=== PATIENT | female | born 1965 | race Caucasian/White ===

== ENCOUNTER → 2020-04-29 | Outpatient (CLI) | payer OTHER ==
--- NOTE | 2020-05-02 12:15 | MM ---
Reason for exam: screening (asymptomatic). History: Patient is postmenopausal. Physical Findings: A clinical breast exam by your physician is recommended on an annual basis and results should be correlated with mammographic findings. MG Screening Mammo w CAD Bilateral CC and MLO view(s) were taken. No prior studies available for comparison. There are scattered fibroglandular densities. There are benign appearing round calcifications bilaterally. There is no discrete abnormality. ASSESSMENT: Benign, BI-RAD 2 RECOMMENDATION: Routine screening mammogram of both breasts in 1 year.
== END | disposition home or self-care (01) ==
LOC: RADMAMWWP 16:45
PROVIDERS: ATTEND Internal Medicine
DX: Z12.31 Encounter for screening mammogram for malignant neoplasm of breast (principal)
CPT/HCPCS: 77067

== ENCOUNTER 2020-09-15 16:52 | Emergency (ER) | payer OTHER ==
[2020-09-15 17:05] VITALS: RESP 18; TEMP 98.6
--- NOTE | 2020-09-15 20:50 | XR ---
EXAMINATION TYPE: XR chest 1V DATE OF EXAM: 09/15/2020 COMPARISON: NONE HISTORY: Cough TECHNIQUE: Single frontal view of the chest is obtained. FINDINGS: There is mild bibasilar hazy opacities. No pleural effusion, or pneumothorax seen. The ca rdiac silhouette size is within normal limits. The osseous structures are intact. IMPRESSION: Mild bibasilar atelectasis versus infiltrates.
[2020-09-15] MEDS ORDERED: BAMLANIVIMAB 700 MG in SODIUM CHLORIDE 0.9% 50 ML IVPB ONE (21:00)
--- NOTE | 2020-09-15 21:37 | ED ---
Recheck HPI - General Chief Complaint: Recheck/Abnormal Lab/Rx Stated Complaint: COVID+ Time Seen by Provider: 09/15/20 20:04 Source: patient Mode of arrival: ambulatory Limitations: no limitations - History of Present Illness Initial Comments: 55-year-old female patient presents to the emergency department requesting infusion of bamlanivimab. Patient tested positive for COVID outpatient, she presents with an order written from her physician to have an infusion of bamlanivimab due to her having type II diabetes and morbid obesity. Patient states that she tested positive on Saturday. States that she started to have shortness of breath and cough on Saturday. States she generally has issues with allergies but her symptoms were different. She states she is coughing. Does feel short of breath especially with coughing episodes. Eyes any vomiting or diarrhea. Denies any rash. Patient denies any recent chest pain, abdominal pain, back pain, numbness, tingling, dizziness, weakness, hematuria, dysuria, urinary urgency, urinary frequency, headache, visual changes, or any other complaints. - Related Data Previous Rx's Medication Instructions Recorded Albuterol Sulfate [Proair Hfa] 1 - 2 puff INHALATION Q6HR PRN #1 09/15/20 inhaler guaiFENesin-DM 600/30MG [Mucinex 1 each PO Q12HR #10 tab.er.12h 09/15/20 Dm] Allergies Allergy/AdvReac Type Severity Reaction Status Date / Time No Known Allergies Allergy Verified 09/15/20 17:05 Review of Systems ROS Statement: Those systems with pertinent positive or pertinent negative responses have been documented in the HPI. ROS Other: All systems not noted in ROS Statement are negative. Past Medical History Past Medical History: Diabetes Mellitus, Hyperlipidemia, Hypertension History of Any Multi-Drug Resistant Organisms: None Reported Past Surgical History: Cholecystectomy, Hysterectomy, Orthopedic Surgery, Tonsillectomy Past Psychological History: No Psychological Hx Reported Smoking Status: Never smoker Past Alcohol Use History: None Reported Past Drug Use History: None Reported General Exam Limitations: no limitations General appearance: alert, in no apparent distress, other (This is a well- developed, well-nourished adult female patient in no acute distress. Vital signs upon presentation temperature 98.6F, pulse 102, respirations 18, blood pressure 136/78, pulse ox 96% on room air.) Eye exam: Present: normal appearance, PERRL, EOMI. Absent: scleral icterus, conjunctival injection, periorbital swelling ENT exam: Present: normal exam, normal oropharynx, mucous membranes moist Respiratory exam: Present: normal lung sounds bilaterally. Absent: respiratory distress, wheezes, rales, rhonchi, stridor Cardiovascular Exam: Present: regular rate, normal rhythm, normal heart sounds. Absent: systolic murmur, diastolic murmur, rubs, gallop, clicks GI/Abdominal exam: Present: soft, normal bowel sounds. Absent: distended, tenderness, guarding, rebound, rigid Neurological exam: Present: alert, oriented X3, CN II-XII intact Psychiatric exam: Present: normal affect, normal mood Skin exam: Present: warm, dry, intact, normal color. Absent: rash Course Vital Signs 09/15/20 17:01 Temperature 98.6 F Pulse Rate 102 H Respiratory 18 Rate Blood Pressure 136/78 O2 Sat by Pulse 96 Oximetry Medical Decision Making - Medical Decision Making 55 -year-old female patient with past medical history significant for type 2 diabetes and morbid obesity with a BMI of 43.3 presents to the emergency department today sent by her physician for possible infusion of bamlanivimab. Patient has been sick with increased shortness of breath and cough since Saturday. Tested positive for COVID-19 on Saturday. Patient does meet criteria we did talk about treatment with the confusion. We discussed risks versus benefits. She does agree to receive the medication. She'll be discharged to follow up with her primary care physician in one to 2 days. Return parameters were discussed in detail. She verbalizes understanding and agrees with this plan. Case discussed with my attending Dr. Vega. - Radiology Data Radiology results: report reviewed, image reviewed One view x-ray of the chest is obtained. Report was reviewed in its entirety. Impression by Dr. Kim shows mild bibasilar atelectasis versus infiltrates. Disposition Clinical Impression: COVID-19 Disposition: HOME SELF-CARE Condition: Good Instructions (If sedation given, give patient instructions): Coronavirus Disease 2019 (COVID-19) Additional Instructions: Increase fluids. Rest. Take medications as directed. Follow up to primary care physician for recheck in 1-2 days. Return to the emergency department for any new, worsening, or concerning symptoms. Prescriptions: guaiFENesin-DM 600/30MG [Mucinex Dm] 1 each PO Q12HR #10 tab.er.12h Albuterol Sulfate [Proair Hfa] 1 - 2 puff INHALATION Q6HR PRN #1 inhaler PRN Reason: Shortness Of Breath Is patient prescribed a controlled substance at d/c from ED?: No Referrals: Pauline Orta MD [Primary Care Provider] - 1-2 days
[2020-09-15 22:51] VITALS: BP 138/88; PULSE 92
== END 2020-09-15 23:17 | disposition home or self-care (01) ==
LOC: EC 16:52
DX: U07.1 COVID-19 (principal); E11.9 Type 2 diabetes mellitus without complications; E78.5 Hyperlipidemia, unspecified; I10 Essential (primary) hypertension; E66.01 Morbid (severe) obesity due to excess calories; Z68.41 Body mass index [BMI] 40.0-44.9, adult; Z79.84 Long term (current) use of oral hypoglycemic drugs
CPT/HCPCS: 71045; 99285; Q0239

== ENCOUNTER 2020-11-08 09:10 | Emergency (ER) | payer OTHER ==
[2020-11-08 09:14] VITALS: TEMP 97.9
[2020-11-08 10:17] LABS: Basophils # (A) 0.1 k/uL (0-0.2); Basophils % (A) 1 %; Eosinophils # (A) 0.1 k/uL (0-0.7); Eosinophils % (A) 2 %; HCT 43.5 % (34.0-46.0); HGB 14.5 gm/dL (11.4-16.0); Lymphocytes # (A) 1.4 k/uL (1.0-4.8); Lymphocytes % (A) 22 %; MCHC 33.2 g/dL (31.0-37.0); MCV 90.2 fL (80.0-100.0); Mean Platelet Volume 6.9; Monocytes # (A) 0.3 k/uL (0-1.0); Monocytes % (A) 5 %; Neutrophils # (A) 4.5 k/uL (1.3-7.7); Neutrophils % (A) 70 %; Platelet Count 221 k/uL (150-450); RBC 4.83 m/uL (3.80-5.40); WBC 6.5 k/uL (3.8-10.6)
[2020-11-08 10:30] VITALS: PULSE 81; RESP 16
[2020-11-08 10:36] LABS: ALT 21 U/L (4-34); AST 27 U/L (14-36); African American GFR (CKD) >90 (>60 ml/min/1.73 sqM); Albumin 4.2 g/dL (3.5-5.0); Alkaline Phosphatase 89 U/L (38-126); Anion Gap 8 mmol/L; Blood Urea Nitrogen 18 mg/dL (7-17); Calcium 9.6 mg/dL (8.4-10.2); Carbon Dioxide 25 mmol/L (22-30); Chloride 108 mmol/L (98-107); Glucose 175 mg/dL (74-99); Non-African American GFR(CKD) >90 (>60 ml/min/1.73 sqM); Potassium 4.2 mmol/L (3.5-5.1); Sodium 141 mmol/L (137-145); Total Bilirubin 0.9 mg/dL (0.2-1.3); Total Protein 7.7 g/dL (6.3-8.2)
--- NOTE | 2020-11-08 10:57 | XR ---
EXAMINATION TYPE: XR chest 2V DATE OF EXAM: 11/08/2020 COMPARISON: 09/15/2020 HISTORY: Swollen legs. TECHNIQUE: Frontal and lateral views of the chest are obtained. FINDINGS: Heart size is within normal limits. No focal consolidation, pneumothorax or pleural effusi on. No cephalization of vessels to suggest pulmonary edema. Mild degenerative changes of the thoracic spine. IMPRESSION: 1. No acute pulmonary disease.
--- NOTE | 2020-11-08 11:09 | ED ---
Extremity Problem HPI - General Chief complaint: Extremity Problem,Nontraumatic Stated complaint: feet & leg swelling/pain Time Seen by Provider: 11/08/20 09:18 Source: patient Mode of arrival: wheelchair Limitations: physical limitation - History of Present Illness Initial comments: 55-year-old female presenting to the ER today for chief complaint of leg swelling. pt states she chronic leg swelling that has been increased this week. states worse yesterday but better today with increasing lasix and leg elevation. Patient states that she has anthony hose that are too tight and thus wont wear them. States she has had chronic dyspnea since covid in September, denies chest pain. Patient states she has always slept with 2 pillows no new orthopnea. denies hx of DVT/PE or calf pain. Denies unilateral swelling. pt states the swelling makes skin tight and it hurts on feet. pt denies additional complaints. Upon arrival patient appears well nontoxic in no acute distress. - Related Data Home Medications Medication Instructions Recorded Confirmed Albuterol Sulfate [Proair Hfa] 1 - 2 puff INHALATION RT-Q6H PRN 11/08/20 Furosemide [Lasix] 40 mg PO DAILY 11/08/20 11/08/20 Gabapentin [Neurontin] 100 mg PO TID 11/08/20 11/08/20 Ibuprofen [Motrin] 800 mg PO AC-TID PRN 11/08/20 11/08/20 Loratadine 10 mg PO DAILY 11/08/20 11/08/20 Montelukast [Singulair] 10 mg PO DAILY 11/08/20 11/08/20 Pioglitazone [Actos] 45 mg PO DAILY 11/08/20 11/08/20 Potassium Chloride ER [K-Dur 10] 10 meq PO DAILY 11/08/20 11/08/20 glipiZIDE [Glucotrol] 5 mg PO AC-BID 11/08/20 11/08/20 lisinopriL [Zestril] 5 mg PO DAILY 11/08/20 11/08/20 Allergies Allergy/AdvReac Type Severity Reaction Status Date / Time No Known Allergies Allergy Verified 11/08/20 09:14 Review of Systems ROS Statement: Those systems with pertinent positive or pertinent negative responses have been documented in the HPI. ROS Other: All systems not noted in ROS Statement are negative. Past Medical History Past Medical History: Diabetes Mellitus, Hyperlipidemia, Hypertension History of Any Multi-Drug Resistant Organisms: None Reported Past Surgical History: Cholecystectomy, Hysterectomy, Orthopedic Surgery, Tonsillectomy Additional Past Surgical History / Comment(s): ganglion cyst Past Psychological History: No Psychological Hx Reported Smoking Status: Never smoker Past Alcohol Use History: None Reported Past Drug Use History: None Reported General Exam - General Exam Comments Initial Comments: General: The patient is awake and alert, in no distress Eye: +3 mm pupils are equal, round and reactive to light, extra-ocular movements are intact. No nystagmus. There is normal conjunctiva bilaterally. No signs of icterus. Ears, nose, mouth and throat: There are moist mucous membranes and no oral lesions. Neck: The neck is supple, there is no tenderness or JVD. Cardiovascular: There is a regular rate and rhythm. No murmur, rub or gallop is appreciated. Respiratory: Lungs are clear to auscultation, respirations are non-labored, breath sounds are equal. No wheezes, stridor, rales, or rhonchi. Gastrointestinal: Soft, non-distended, non-tender abdomen without masses or organomegaly noted. There is no rebound or guarding present. Musculoskeletal: Normal ROM, no tenderness. Strength 5/5. Sensation intact. Radial and DP pulses equal bilaterally 2+. Neurological: A&O x 3. CN II-XII intact grossly, There are no obvious motor or sensory deficits. Coordination appears grossly intact. Speech is normal. Skin: Skin is warm and dry and no rashes or lesions are noted. Psychiatric: Cooperative, appropriate mood & affect, normal judgment. Limitations: physical limitation Course Vital Signs 11/08/20 11/08/20 11/08/20 09:11 10:14 11:31 Temperature 97.9 F 97.9 F Pulse Rate 88 81 81 Respiratory 18 16 16 Rate Blood Pressure 152/77 155/82 153/85 O2 Sat by Pulse 98 98 98 Oximetry Medical Decision Making - Medical Decision Making Labs stable. No evidence of CHF on cxr. bnp wnl. pt swelling chronic. felt to be likely due to venous insufficiency. pt denies additional complaints. pt will be discharged with instruction to use her anthony hose and return for worsening swelling or new symptoms. - Lab Data Result diagrams: 11/08/20 09:47 11/08/20 09:47 Lab Results 11/08/20 11/08/20 11/08/20 Range/Units 09:47 09:47 09:47 WBC 6.5 (3.8-10.6) k/uL RBC 4.83 (3.80-5.40) m/uL Hgb 14.5 (11.4-16.0) gm/dL Hct 43.5 (34.0-46.0) % MCV 90.2 (80.0-100.0) fL MCH 30.0 (25.0-35.0) pg MCHC 33.2 (31.0-37.0) g/dL RDW 14.0 (11.5-15.5) % Plt Count 221 (150-450) k/uL MPV 6.9 Neutrophils % 70 % Lymphocytes % 22 % Monocytes % 5 % Eosinophils % 2 % Basophils % 1 % Neutrophils # 4.5 (1.3-7.7) k/uL Lymphocytes # 1.4 (1.0-4.8) k/uL Monocytes # 0.3 (0-1.0) k/uL Eosinophils # 0.1 (0-0.7) k/uL Basophils # 0.1 (0-0.2) k/uL Sodium 141 (137-145) mmol/L Potassium 4.2 (3.5-5.1) mmol/L Chloride 108 H (98-107) mmol/L Carbon Dioxide 25 (22-30) mmol/L Anion Gap 8 mmol/L BUN 18 H (7-17) mg/dL Creatinine 0.62 (0.52-1.04) mg/dL Est GFR (CKD-EPI)AfAm >90 (>60 ml/min/1.73 sqM) Est GFR (CKD-EPI)NonAf >90 (>60 ml/min/1.73 sqM) Glucose 175 H (74-99) mg/dL Calcium 9.6 (8.4-10.2) mg/dL Total Bilirubin 0.9 (0.2-1.3) mg/dL AST 27 (14-36) U/L ALT 21 (4-34) U/L Alkaline Phosphatase 89 (38-126) U/L Troponin I <0.012 (0.000-0.034) ng/mL NT-Pro-B Natriuret Pep pg/mL Total Protein 7.7 (6.3-8.2) g/dL Albumin 4.2 (3.5-5.0) g/dL 11/08/20 Range/Units 09:47 WBC (3.8-10.6) k/uL RBC (3.80-5.40) m/uL Hgb (11.4-16.0) gm/dL Hct (34.0-46.0) % MCV (80.0-100.0) fL MCH (25.0-35.0) pg MCHC (31.0-37.0) g/dL RDW (11.5-15.5) % Plt Count (150-450) k/uL MPV Neutrophils % % Lymphocytes % % Monocytes % % Eosinophils % % Basophils % % Neutrophils # (1.3-7.7) k/uL Lymphocytes # (1.0-4.8) k/uL Monocytes # (0-1.0) k/uL Eosinophils # (0-0.7) k/uL Basophils # (0-0.2) k/uL Sodium (137-145) mmol/L Potassium (3.5-5.1) mmol/L Chloride (98-107) mmol/L Carbon Dioxide (22-30) mmol/L Anion Gap mmol/L BUN (7-17) mg/dL Creatinine (0.52-1.04) mg/dL Est GFR (CKD-EPI)AfAm (>60 ml/min/1.73 sqM) Est GFR (CKD-EPI)NonAf (>60 ml/min/1.73 sqM) Glucose (74-99) mg/dL Calcium (8.4-10.2) mg/dL Total Bilirubin (0.2-1.3) mg/dL AST (14-36) U/L ALT (4-34) U/L Alkaline Phosphatase (38-126) U/L Troponin I (0.000-0.034) ng/mL NT-Pro-B Natriuret Pep 187 pg/mL Total Protein (6.3-8.2) g/dL Albumin (3.5-5.0) g/dL Disposition Clinical Impression: Bilateral lower extremity edema Disposition: HOME SELF-CARE Condition: Good Instructions (If sedation given, give patient instructions): Leg Edema (ED) Additional Instructions: Please use medication as discussed. Please follow-up with family doctor in the next 2 days. Please return to emergency room if the symptoms increase or worsen or for any other concerns. Is patient prescribed a controlled substance at d/c from ED?: No Referrals: Pauline Orta MD [Primary Care Provider] - 1-2 days Time of Disposition: 11:09
[2020-11-08 11:32] VITALS: BP 153/85
== END 2020-11-08 11:36 | disposition home or self-care (01) ==
LOC: EC 09:10
DX: R60.0 Localized edema (principal); E11.9 Type 2 diabetes mellitus without complications; E78.5 Hyperlipidemia, unspecified; I10 Essential (primary) hypertension; Z90.49 Acquired absence of other specified parts of digestive tract; Z90.710 Acquired absence of both cervix and uterus; Z90.09 Acquired absence of other part of head and neck; Z79.84 Long term (current) use of oral hypoglycemic drugs
CPT/HCPCS: 36415; 71046; 80053; 83880; 84484; 85025; 99285

== ENCOUNTER → 2020-11-15 | Outpatient (CLI) | payer OTHER ==
--- NOTE | 2020-11-15 16:51 | US ---
EXAMINATION TYPE: US pelvis complete transvag DATE OF EXAM: 11/15/2020 COMPARISON: NONE CLINICAL HISTORY: R10.2 pelvic pain. TECHNIQUE: Transvaginal (TV) and Transabdominal (TA) . Transabdominal sonographic images of the pel vis were acquired. Transvaginal sonographic images were medically necessary to better assess the fol lowing anatomy: ovaries Date of LMP: Hysterectomy EXAM MEASUREMENTS: Uterus: Surgically absent Endometrial Stripe: Surgically absent Right Ovary: not visualized Left Ovary: not visualized 1. Uterus: Surgically absent 2. Endometrium: Surgically absent 3. Right Ovary: obscured by overlying bowel/obesity 4. Left Ovary: obscured by overlying bowel/obesity 5. Bilateral Adnexa: wnl 6. Posterior cul-de-sac: wnl Morbidly obese patient. Technically difficult study. IMPRESSION: 1. Status post hysterectomy. The patient is morbidly obese causing limited evaluation. The ovaries ca nnot be visualized either due to surgical removal or patient's large body habitus obscuring visualiza tion.
== END | disposition home or self-care (01) ==
LOC: RADUSWWP 15:48
PROVIDERS: ATTEND Internal Medicine
DX: R10.2 Pelvic and perineal pain (principal); Z90.710 Acquired absence of both cervix and uterus
CPT/HCPCS: 76830; 76856

== ENCOUNTER → 2020-11-18 | Outpatient (CLI) | payer OTHER ==
--- NOTE | 2020-11-19 15:57 | ECHOF ---
Referral Reason:SOB R06.02, Leg Swelling R22.40 MEASUREMENTS -------- HEIGHT: 170.2 cm WEIGHT: 133.4 kg BP: IVSd: 1.3 cm (0.6 - 1.1) LVIDd: 4.0 cm (3.9 - 5.3) LVPWd: 1.5 cm (0.6 - 1.1) EDV(Teich): 69 ml IVSs: 2.0 cm LVIDs: 2.2 cm LVPWs: 2.1 cm %IVS Thck: 52 % ESV(Teich): 16 ml EF(Teich): 76 % %FS: 45 % SV(Teich): 53 ml RVIDd: 2.2 cm (< 3.3) Ao Diam: 2.6 cm (2.0 - 3.7) LA Diam: 3.2 cm (2.7 - 3.8) AV Cusp: 1.4 cm (1.5 - 2.6) EPSS: 0.7 cm MV E Presley: 0.89 m/s MV DecT: 158 ms MV Dec [place]: 5.6 m/s MV A Presley: 0.87 m/s MV E/A Ratio: 1.02 MV PHT: 46 ms MR Vmax: 1.53 m/s MR maxP.31 mmHg AV Vmax: 1.34 m/s AV maxP.14 mmHg TR Vmax: 1.28 m/s TR maxP.59 mmHg RAP: 5.00 mmHg RVSP: 11.59 mmHg MV EF SLOPE: 61.30 mm/s (70 - 150) MV EXCURSION: 14.23 mm (> 18.000) FINDINGS -------- This was a technically difficult study with suboptimal views. The left ventricular size is normal. There is moderate concentric left ventricular hypertrophy. O verall left ventricular systolic function is normal with, an EF between 55 - 60 %. The right ventricle is normal in size. The left atrial size is normal. The right atrial size is normal. Lumason used The aortic valve was not well visualized. The mitral valve is normal. There is trace mitral regurgitation. The tricuspid valve appears structurally normal. Trace tricuspid regurgitation present. Right molly tricular systolic pressure is normal at < 35 mmHg. There is no pulmonic regurgitation present. The aortic root size is normal. IVC Not well visulized. There is no pericardial effusion. CONCLUSIONS -------- 1. The left ventricular size is normal. 2. There is moderate concentric left ventricular hypertrophy. 3. Overall left ventricular systolic function is normal with, an EF between 55 - 60 %. 4. There is trace mitral regurgitation. 5. Trace tricuspid regurgitation present. 6. There is no pericardial effusion. PNP: Marni Latif RDCS
== END | disposition home or self-care (01) ==
LOC: RADECHMAIN 14:53
PROVIDERS: ATTEND Internal Medicine
DX: I08.1 Rheumatic disorders of both mitral and tricuspid valves (principal)
CPT/HCPCS: 93306

== ENCOUNTER → 2021-03-06 | Outpatient (CLI) | payer OTHER | END | disposition home or self-care (01) | LOC: RADMRIMAIN 08:10 | PROVIDERS: ATTEND Internal Medicine | DX: Z53.9 Procedure and treatment not carried out, unspecified reason (principal) ==

== ENCOUNTER → 2021-07-18 | Outpatient (CLI) | payer OTHER ==
--- NOTE | 2021-07-18 17:58 | BD ---
EXAMINATION TYPE: Axial Bone Density DATE OF EXAM: 07/18/2021 COMPARISON: NONE CLINICAL HISTORY: Postmenopausal screening Height: 65 IN Weight: 302 LBS FRAX RISK QUESTIONS: Secondary Osteoporosis: 3. Menopause before 45: PARTIAL HYST AGE 40 RISK FACTORS HISTORY OF: Active: LIMITED Diet low in dairy products/other sources of calcium: YES Postmenopausal woman: PARTIAL HYST AGE 40 MEDICATIONS: Additional Medications: GABAPENTIN, FUROSEMIDE, GLIPIZIDE, LISINOPRIL, ACTOS, KLOR-CON, MONTELUKAST, ROSUVASTATIN, CLARITIN EXAM MEASUREMENTS: Bone mineral densitometry was performed using the Haloband System. Bone mineral density as measured about the Lumbar spine is: ----- L1-L4(G/cm2): 1.284 T Score Values are as follows: ----- L2: 1.6 ----- L3: 0.3 ----- L4: 0.6 ----- L1-L4: 0.9 Bone mineral density BASELINE Bone mineral density about the R hip (g/cm2): 1.037 Bone mineral density about the L hip (g/cm2): 1.030 T Score values are as follows: -----R Neck: 0.0 -----L Neck: -0.1 -----R Total: 1.9 -----L Total: 1.9 Bone mineral density BASELINE IMPRESSION: Normal (Values between +1 and -1 indicate normal bone mass). Consider repeating this study in 5 year s or sooner if there is some new clinical indication. NOTE: T-SCORE=SD OF THE YOUNG ADULT MEAN.
--- NOTE | 2021-07-19 14:06 | MM ---
Reason for exam: screening (asymptomatic). Last mammogram was performed 1 year and 3 months ago. History: Patient is postmenopausal. Family history of breast cancer in maternal aunt. Physical Findings: A clinical breast exam by your physician is recommended on an annual basis and results should be correlated with mammographic findings. MG Screening Mammo w CAD Bilateral CC and MLO view(s) were taken. Prior study comparison: April 29, 2020, bilateral MG screening mammo w CAD. There are scattered fibroglandular densities. There is no discrete abnormality. ASSESSMENT: Negative, BI-RAD 1 RECOMMENDATION: Routine screening mammogram of both breasts in 1 year.
== END | disposition home or self-care (01) ==
LOC: RADMAMWWP 13:06
PROVIDERS: ATTEND Internal Medicine
DX: Z12.31 Encounter for screening mammogram for malignant neoplasm of breast (principal); Z78.0 Asymptomatic menopausal state; Z80.3 Family history of malignant neoplasm of breast
CPT/HCPCS: 77067; 77080

== ENCOUNTER 2021-07-29 01:06 | Emergency (ER) | payer OTHER ==
[2021-07-29 01:15] VITALS: BP 150/84; PULSE 87; RESP 18; TEMP 97.9
--- NOTE | 2021-07-29 02:04 | XR ---
EXAMINATION TYPE: XR ankle complete RT DATE OF EXAM: 07/29/2021 COMPARISON: NONE HISTORY: Fall. Pain TECHNIQUE: 3 views FINDINGS: There is plantar and Achilles calcaneal spurring. There is mild soft tissue swelling around the ankle. I see no fracture nor dislocation. IMPRESSION: Soft tissue swelling. No fracture seen.
--- NOTE | 2021-07-29 03:05 | ED ---
Fall HPI - General Chief Complaint: Fall Stated Complaint: Fall, RT ankle injury Time Seen by Provider: 07/29/21 01:30 Source: patient Mode of arrival: wheelchair - History of Present Illness Complaint: fall -: hour(s) Fall From: standing When Fall Occurred: 1-[address] Fall Occurred: street Loss of Consciousness: none Prolonged Down Time?: no Symptoms Prior to Fall: none Location - Extremities: Right: Ankle Severity: moderate Context: tripped/slipped - Related Data Home Medications Medication Instructions Recorded Confirmed Albuterol Sulfate [Proair Hfa] 1 - 2 puff INHALATION RT-Q6H PRN 11/08/20 11/08/20 Furosemide [Lasix] 40 mg PO DAILY 11/08/20 11/08/20 Gabapentin [Neurontin] 100 mg PO TID 11/08/20 11/08/20 Ibuprofen [Motrin] 800 mg PO AC-TID PRN 11/08/20 11/08/20 Loratadine 10 mg PO DAILY 11/08/20 11/08/20 Montelukast [Singulair] 10 mg PO DAILY 11/08/20 11/08/20 Pioglitazone [Actos] 45 mg PO DAILY 11/08/20 11/08/20 Potassium Chloride ER [K-Dur 10] 10 meq PO DAILY 11/08/20 11/08/20 glipiZIDE [Glucotrol] 5 mg PO AC-BID 11/08/20 11/08/20 lisinopriL [Zestril] 5 mg PO DAILY 11/08/20 11/08/20 Previous Rx's Medication Instructions Recorded Ibuprofen 800 mg PO TID #20 tablet 07/29/21 Allergies Allergy/AdvReac Type Severity Reaction Status Date / Time No Known Allergies Allergy Verified 07/29/21 01:15 Review of Systems ROS Statement: Those systems with pertinent positive or pertinent negative responses have been documented in the HPI. ROS Other: All systems not noted in ROS Statement are negative. Constitutional: Denies: fever Respiratory: Denies: cough, dyspnea Cardiovascular: Denies: chest pain Gastrointestinal: Denies: abdominal pain, vomiting Musculoskeletal: Reports: joint swelling, arthralgia. Denies: back pain Skin: Denies: rash Neurological: Denies: headache, weakness Past Medical History Past Medical History: Diabetes Mellitus, Hyperlipidemia, Hypertension History of Any Multi-Drug Resistant Organisms: None Reported Past Surgical History: Cholecystectomy, Hysterectomy, Orthopedic Surgery, Tonsillectomy Additional Past Surgical History / Comment(s): ganglion cyst Past Psychological History: No Psychological Hx Reported Smoking Status: Never smoker Past Alcohol Use History: None Reported Past Drug Use History: None Reported General Exam General appearance: alert, in no apparent distress Head exam: Present: atraumatic, normocephalic Respiratory exam: Present: normal lung sounds bilaterally. Absent: respiratory distress, wheezes, rales, rhonchi, stridor Cardiovascular Exam: Present: regular rate, normal rhythm, normal heart sounds. Absent: systolic murmur, diastolic murmur, rubs, gallop GI/Abdominal exam: Present: soft. Absent: distended, tenderness, guarding, rebound, rigid Extremities exam: Present: full ROM, tenderness, normal capillary refill, joint swelling. Absent: normal inspection, pedal edema, calf tenderness Right Knee exam: Present: normal inspection, full ROM. Absent: tenderness, swelling Lower Leg exam: Present: normal inspection, full ROM. Absent: tenderness, swelling Ankle exam: Present: full ROM, tenderness, swelling. Absent: normal inspection, abrasion, laceration, ecchymosis, deformity, crepitus, dislocation Foot/Toe exam: Present: normal inspection, full ROM. Absent: tenderness, swelling, ecchymosis, deformity, calcaneal tenderness, tenderness at base of 5th metatarsal Neurovascular tendon exam: Present: no vascular compromise. Absent: pulse deficit, abnormal cap refill, motor deficit, sensory deficit, tendon deficit, abnormal 2-point discrimination Neurological exam: Present: alert. Absent: motor sensory deficit Skin exam: Present: warm, dry, intact, normal color. Absent: rash Course Vital Signs 07/29/21 01:10 Temperature 97.9 F Pulse Rate 87 Respiratory 18 Rate Blood Pressure 150/84 O2 Sat by Pulse 98 Oximetry Disposition Clinical Impression: Fall, Ankle sprain Disposition: HOME SELF-CARE Condition: Good Instructions (If sedation given, give patient instructions): Ankle Sprain (ED) Prescriptions: Ibuprofen 800 mg PO TID #20 tablet Is patient prescribed a controlled substance at d/c from ED?: No Referrals: Pauline Orta MD [Primary Care Provider] - 1-2 days
== END 2021-07-29 03:31 | disposition home or self-care (01) ==
LOC: EC 01:06
DX: S93.401A Sprain of unspecified ligament of right ankle, initial encounter (principal); E11.9 Type 2 diabetes mellitus without complications; I10 Essential (primary) hypertension; E78.5 Hyperlipidemia, unspecified; Z79.84 Long term (current) use of oral hypoglycemic drugs; Z79.899 Other long term (current) drug therapy; W01.0XXA Fall on same level from slipping, tripping and stumbling without subsequent striking against object, initial encounter; Y92.410 Unspecified street and highway as the place of occurrence of the external cause
CPT/HCPCS: 99284

== ENCOUNTER 2021-09-05 14:36 | Emergency (ER) | payer OTHER ==
[2021-09-05 17:40] VITALS: RESP 18
--- NOTE | 2021-09-05 18:20 | ED ---
General Adult HPI - General Chief complaint: Upper Respiratory Infection Stated complaint: SOB & congestion Time Seen by Provider: 09/05/21 18:00 Source: patient, RN notes reviewed, old records reviewed Mode of arrival: ambulatory Limitations: no limitations - History of Present Illness Initial comments: This a 56-year-old female presents emergency Department complaining of a weeklong history of cough. Patient states she does have a little bit of sputum production. Patient denies any shortness of breath but she complains of rib pain because of her coughing. Patient also states she has frontal sinus tenderness and a frontal headache. Patient states she did get the COVID vaccine but did not get the booster. Patient denies any abdominal pain. Patient denies any back pain patient denies any nausea vomiting diarrhea. Patient denies any numbness or weakness. - Related Data Home Medications Medication Instructions Recorded Confirmed Albuterol Sulfate [Proair Hfa] 1 - 2 puff INHALATION RT-Q6H PRN 11/08/20 11/08/20 Furosemide [Lasix] 40 mg PO DAILY 11/08/20 11/08/20 Gabapentin [Neurontin] 100 mg PO TID 11/08/20 11/08/20 Ibuprofen [Motrin] 800 mg PO AC-TID PRN 11/08/20 11/08/20 Loratadine 10 mg PO DAILY 11/08/20 11/08/20 Montelukast [Singulair] 10 mg PO DAILY 11/08/20 11/08/20 Pioglitazone [Actos] 45 mg PO DAILY 11/08/20 11/08/20 Potassium Chloride ER [K-Dur 10] 10 meq PO DAILY 11/08/20 11/08/20 glipiZIDE [Glucotrol] 5 mg PO AC-BID 11/08/20 11/08/20 lisinopriL [Zestril] 5 mg PO DAILY 11/08/20 11/08/20 Previous Rx's Medication Instructions Recorded Ibuprofen 800 mg PO TID #20 tablet 07/29/21 Amoxicillin/Potassium Clav 1 each PO Q12HR #20 tab 09/05/21 [Augmentin 875-125 Tablet] Allergies Allergy/AdvReac Type Severity Reaction Status Date / Time No Known Allergies Allergy Verified 09/05/21 15:38 Review of Systems ROS Statement: Those systems with pertinent positive or pertinent negative responses have been documented in the HPI. ROS Other: All systems not noted in ROS Statement are negative. Past Medical History Past Medical History: Diabetes Mellitus, Hyperlipidemia, Hypertension History of Any Multi-Drug Resistant Organisms: None Reported Past Surgical History: Cholecystectomy, Hysterectomy, Orthopedic Surgery, Tonsillectomy Additional Past Surgical History / Comment(s): ganglion cyst Past Psychological History: No Psychological Hx Reported Smoking Status: Never smoker Past Alcohol Use History: None Reported Past Drug Use History: None Reported General Exam - General Exam Comments Initial Comments: GENERAL: Patient is well-developed and well-nourished. Patient is nontoxic and well- hydrated and is in mild distress. ENT: Neck is soft and supple. No significant lymphadenopathy is noted. Oropharynx is clear. Moist mucous membranes. Neck has full range of motion without eliciting any pain. Patient has frontal sinus tenderness EYES: The sclera were anicteric and conjunctiva were pink and moist. Extraocular movements were intact and pupils were equal round and reactive to light. Eyelids were unremarkable. PULMONARY: Unlabored respirations. Good breath sounds bilaterally. No audible rales rhonchi or wheezing was noted. CARDIOVASCULAR: There is a regular rate and rhythm without any murmurs gallops or rubs. ABDOMEN: Soft and nontender with normal bowel sounds. SKIN: Skin is clear with no lesions or rashes and otherwise unremarkable. NEUROLOGIC: Patient is alert and oriented x3. Cranial nerves II through XII are grossly intact. Motor and sensory are also intact. Normal speech, volume and content. Symmetrical smile. MUSCULOSKELETAL: Normal extremities with adequate strength and full range of motion. LYMPHATICS: No significant lymphadenopathy is noted PSYCHIATRIC: Normal psychiatric evaluation. Limitations: no limitations Course Vital Signs 09/05/21 09/05/21 15:39 17:36 Temperature 98.3 F Pulse Rate 110 H Respiratory 22 18 Rate Blood Pressure 143/83 O2 Sat by Pulse 99 Oximetry Medical Decision Making - Medical Decision Making COVID is negative Chest x-ray shows no acute abnormality. - Lab Data Lab Results 09/05/21 Range/Units 18:23 Coronavirus (PCR) Not Detected (Not Detectd) Disposition Clinical Impression: Sinusitis Disposition: HOME SELF-CARE Condition: Good Additional Instructions: Patient should take anabolic as prescribed. Patient should also take Sudafed. Prescriptions: Amoxicillin/Potassium Clav [Augmentin 875-125 Tablet] 1 each PO Q12HR #20 tab Is patient prescribed a controlled substance at d/c from ED?: No Referrals: Pauline Orta MD [Primary Care Provider] - 1-2 days Time of Disposition: 18:54
--- NOTE | 2021-09-05 18:47 | XR ---
EXAMINATION TYPE: XR chest 2V DATE OF EXAM: 09/05/2021 COMPARISON: 07/11/2021 HISTORY: Short of breath TECHNIQUE: FINDINGS: Heart and mediastinum are normal. Lungs are clear. Diaphragm is normal. Bony thorax appears normal. IMPRESSION: No active cardiopulmonary disease. No change.
[2021-09-05 19:14] VITALS: BP 157/72; PULSE 104; TEMP 97.8
== END 2021-09-05 19:22 | disposition home or self-care (01) ==
LOC: EC 14:36
DX: J01.10 Acute frontal sinusitis, unspecified (principal); Z20.822 Contact with and (suspected) exposure to COVID-19; E11.9 Type 2 diabetes mellitus without complications; I10 Essential (primary) hypertension; E78.5 Hyperlipidemia, unspecified; Z79.84 Long term (current) use of oral hypoglycemic drugs; Z79.51 Long term (current) use of inhaled steroids; Z79.899 Other long term (current) drug therapy
CPT/HCPCS: 71046; 87635; 99284

== ENCOUNTER → 2022-07-05 | Outpatient (CLI) | payer OTHER ==
[2022-07-05 15:49] VITALS: BP 123/72; PULSE 70; RESP 16; TEMP 97.9; BMI 53.3
--- NOTE | 2022-07-05 17:45 | P.HPBAR ---
Bariatric H&P - History & Physicial H&P Date: 07/05/22 History & Physicial: Visit/CC: iNITIAL VISIT Patient initial contact: Initial weight: 149.856 kg Initial weight in pounds: 330.38 Height: 5 ft 6 in Initial BMI: 53.3 Last weight: Current weight: 149.856 kg Current weight in pounds: 330.38 Current BMI: 53.3 [place] body weight (based on NIH guidelines): 58.967 kg Excess body weight loss: 0.0% The patient is a 57 year-old F who presents for Bariatric Assessment. Patient is interested in weight loss surgery. She states she is leaning towards a sleeve gastrectomy although admits that she did not have a strong family about what surgery to have. Patient suffers from hypertension, hypercholesterolemia, type 2 diabetes, asthma, sleep apnea, chronic back pain, mild reflux symptoms. Patient denies DVT or dysphagia. No tobacco use. Patient says she has gained and the majority of this weight after Covid within the last 1.5 years. She says part of her issue is worsening asthma and frequent steroid use. Abdominal surgery history includes hysterectomy and laparoscopic cholecystectomy. Review of Systems The patient denies any acute changes in vision or hearing, no dysphagia or odynophagia, no chest pain or shortness of breath, no dysuria or hematuria, no headache, no runny nose, no rectal bleeding or melena, no unexplained weight loss Past Medical History Past Medical History: Diabetes Mellitus, Hyperlipidemia, Hypertension History of Any Multi-Drug Resistant Organisms: None Reported Past Surgical History: Cholecystectomy, Hysterectomy, Orthopedic Surgery, Tonsillectomy Additional Past Surgical History / Comment(s): ganglion cyst Past Psychological History: No Psychological Hx Reported Smoking Status: Never smoker Past Alcohol Use History: None Reported Past Drug Use History: None Reported Surgical - Exam Vital Signs Temp Pulse Resp BP 97.9 F 70 16 123/72 07/05/22 15:46 07/05/22 15:46 07/05/22 15:46 07/05/22 15:46 Physical exam: General: Well-developed, well-nourished HEENT: Normocephalic, sclerae nonicteric Abdomen: Nontender, nondistended Extremities: No edema Neuro: Alert and oriented Bariatric Assessment & Plan (1) Morbid obesity with BMI of 50.0-59.9, adult Narrative/Plan: 57-year-old female with morbid obesity and associated morbidities. Patient remains interested in surgical weight loss. Patient would like to proceed with sleeve gastrectomy at this time. Risks and benefits of the frequent and offered. Procedures were reviewed in detail. Expected weight loss also discus sed. Will require preoperative EGD which will be scheduled. Begin supervised weight loss at this time. Status: Acute Bariatric Checklist Checklist: Plan: Checklist: EGD: 1. Hiatal hernia: 2. H. Pylori: HgbA1c: Vitamin D: Smoking: Primary care physician referral: Psychiatry clearance: Cardiology clearance: Sleep study: Diet journal: VTE risk score: VTE risk level: Rehab needs at discharge:
== END ==
LOC: BARWHC3 14:32
PROVIDERS: ATTEND Surgery
DX: E66.01 Morbid (severe) obesity due to excess calories (principal); Z68.43 Body mass index [BMI] 50.0-59.9, adult; E78.5 Hyperlipidemia, unspecified; E11.9 Type 2 diabetes mellitus without complications; Z79.84 Long term (current) use of oral hypoglycemic drugs; I10 Essential (primary) hypertension; Z79.899 Other long term (current) drug therapy
CPT/HCPCS: 99211

== ENCOUNTER 2023-05-18 10:15 | Emergency (ER) | payer OTHER ==
[2023-05-18 11:10] VITALS: TEMP 98.2
[2023-05-18] MEDS ORDERED: KETOROLAC 15 MG/ML 1 ML VIAL IM STA (12:00)
--- NOTE | 2023-05-18 12:01 | ED ---
Back Pain HPI - General Chief Complaint: Back Pain/Injury Stated Complaint: fall Time Seen by Provider: 05/18/23 12:01 Source: patient, RN notes reviewed Limitations: no limitations - History of Present Illness Initial Comments: Patient's 57 -year-old female presenting to the ER with chief complaint of lumbar back pain. Patient states she had a fall on [id number]. Patient is also complaining of cervical neck pain as well. She describes the pain as a burning sensation. She denies any fevers, paresthesias, bowel/bladder incontience. Patient denies any fevers, chills, night sweats. - Related Data Home Medications Medication Instructions Recorded Confirmed Albuterol Sulfate [Proair Hfa] 1 - 2 puff INHALATION RT-Q6H PRN 11/08/20 Furosemide [Lasix] 40 mg PO DAILY 11/08/20 07/05/22 Gabapentin [Neurontin] 100 mg PO TID 11/08/20 07/05/22 Ibuprofen [Motrin] 800 mg PO AC-TID PRN 11/08/20 07/05/22 Loratadine 10 mg PO DAILY 11/08/20 07/05/22 Montelukast [Singulair] 10 mg PO DAILY 11/08/20 07/05/22 Pioglitazone [Actos] 45 mg PO DAILY 11/08/20 07/05/22 Potassium Chloride ER [K-Dur 10] 10 meq PO DAILY 11/08/20 07/05/22 glipiZIDE [Glucotrol] 5 mg PO AC-BID 11/08/20 07/05/22 lisinopriL [Zestril] 5 mg PO DAILY 11/08/20 07/05/22 Previous Rx's Medication Instructions Recorded Ibuprofen 800 mg PO TID #20 tablet 07/29/21 Amoxicillin/Potassium Clav 1 each PO Q12HR #20 tab 09/05/21 [Augmentin 875-125 Tablet] Cyclobenzaprine [Flexeril] 10 mg PO TID PRN #15 tab 05/18/23 Ketorolac [Toradol] 10 mg PO Q6HR #15 tab 05/18/23 Allergies Allergy/AdvReac Type Severity Reaction Status Date / Time No Known Allergies Allergy Verified 05/18/23 10:55 Review of Systems ROS Statement: Those systems with pertinent positive or pertinent negative responses have been documented in the HPI. ROS Other: All systems not noted in ROS Statement are negative. Past Medical History Past Medical History: Diabetes Mellitus, Hyperlipidemia, Hypertension History of Any Multi-Drug Resistant Organisms: None Reported Past Surgical History: Cholecystectomy, Hysterectomy, Orthopedic Surgery, Tonsillectomy Additional Past Surgical History / Comment(s): ganglion cyst Past Psychological History: No Psychological Hx Reported Smoking Status: Never smoker Past Alcohol Use History: None Reported Past Drug Use History: None Reported General Exam Limitations: no limitations General appearance: alert, in no apparent distress Head exam: Present: atraumatic, normocephalic, normal inspection Neck exam: Present: normal inspection. Absent: tenderness, meningismus, lymphadenopathy Respiratory exam: Present: normal lung sounds bilaterally. Absent: respiratory distress, wheezes, rales, rhonchi, stridor Cardiovascular Exam: Present: regular rate, normal rhythm, normal heart sounds. Absent: systolic murmur, diastolic murmur, rubs, gallop, clicks Back exam: Present: normal inspection Neurological exam: Present: alert, oriented X3, CN II-XII intact Psychiatric exam: Present: normal affect, normal mood Skin exam: Present: warm, dry, intact, normal color. Absent: rash Course Vital Signs 05/18/23 10:51 Temperature 98.2 F Pulse Rate 75 Respiratory 20 Rate Blood Pressure 112/72 O2 Sat by Pulse 99 Oximetry Medical Decision Making - Medical Decision Making Was pt. sent in by a medical professional or institution (, PA, DATABASES SOFTWARE CONSULTANT, urgent care, hospital, or prison...) When possible be specific @ -No Did you speak to anyone other than the patient for history (EMS, parent, family, police, friend...)? What history was obtained from this source @ -No Did you review nursing and triage notes (agree or disagree)? Why? @ -I reviewed and agree with nursing and triage notes Were old charts reviewed (outside hosp., previous admission, EMS record, old EKG, old radiological studies, urgent care reports/EKG's, prison records)? Report findings @ -No old charts were reviewed Differential Diagnosis (chest pain, altered mental status, abdominal pain women, abdominal pain men, vaginal bleeding, weakness, fever, dyspnea, syncope, headache, dizziness, GI bleed, back pain, seizure, CVA, palpatations, mental health, musculoskeletal)? @ -Differential Back Pain:Strain, zoster, cauda equina syndrome, epidural a bscess, vertebral osteomyelitis, discitis, fracture, subluxation, disc herniation, DJD, spinal stenosis, dissection, AAA, pancreatitis, peptic ulcer disease, pyelonephritis, kidney stone, this is not meant to be an all-inclusive list.. EKG interpreted by me (3pts min.). @ -None X-rays interpreted by me (1pt min.). @ -Cervical and lumbar x-ray showed no acute fractures or dislocations. CT interpreted by me (1pt min.). @ -None done U/S interpreted by me (1pt. min.). @ -None done What testing was considered but not performed or refused? (CT, X-rays, U/S, labs)? Why? @ -None What meds were considered but not given or refused? Why? @ -None Did you discuss the management of the patient with other professionals (professionals i.e. , PA, DATABASES SOFTWARE CONSULTANT, lab, RT, psych nurse, healthcare social worker, job coaching, teacher, mobile patrol officer, protective services case worker)? Give summary @ -No Was smoking cessation discussed for >3mins.? @ -No Was critical care preformed (if so, how long)? @ -No Were there social determinants of health that impacted care today? How? (Homelessness, low income, unemployed, alcoholism, drug addiction, transportation, low edu. Level, literacy, decrease access to med. care, [place] [facility], rehab)? @ -No Was there de-escalation of care discussed even if they declined (Discuss DNR or withdrawal of care, Hospice)? DNR status @ -No What co-morbidities impacted this encounter? (DM, HTN, Smoking, COPD, CAD, Cancer, CVA, ARF, Chemo, Hep., AIDS, mental health diagnosis, sleep apnea, morbid obesity)? @ -None Was patient admitted / discharged? Hospital course, mention meds given and route, prescriptions, significant lab abnormalities, going to OR and other pertinent info. @ -Discharge. Upon examination patient was tender to lumbar spine. Vital signs remained stable. Cervical and lumbar x-ray showed no acute fractures or dislocations. Patient received IM Toradol for pain control the ER. Upon reeva luation, patient states her pain slightly improved. Patient will be discharged with a prescription for Flexeril and ketorolac. Return parameters were discussed. Patient be discharged in stable condition with follow-up to PCP. Patient is breast understanding and agreement with care plan. Undiagnosed new problem with uncertain prognosis? @ -No Drug Therapy requiring intensive monitoring for toxicity (Heparin, Nitro, Insulin, Cardizem)? @ -No Were any procedures done? @ -No Diagnosis/symptom? @ -Back pain Acute, or Chronic, or Acute on Chronic? @ -Acute Uncomplicated (without systemic symptoms) or Complicated (systemic symptoms)? @ -Uncomplicated Side effects of treatment? @ -No Exacerbation, Progression, or Severe Exacerbation? @ -No Poses a threat to life or bodily function? How? (Chest pain, [place], [place], pneumonia, PE, COPD, DKA, ARF, appy, cholecystitis, CVA, Diverticulitis, Homicidal, Suicidal, threat to staff... and all critical care pts) @ -No - Radiology Data Radiology results: report reviewed, image reviewed Disposition Clinical Impression: Muscle contusion Disposition: HOME SELF-CARE Condition: Stable Additional Instructions: Please return to the Emergency Department if symptoms worsen or any other concerns. Prescriptions: Cyclobenzaprine [Flexeril] 10 mg PO TID PRN #15 tab PRN Reason: Muscle Spasm Ketorolac [Toradol] 10 mg PO Q6HR #15 tab Is patient prescribed a controlled substance at d/c from ED?: No Referrals: Pauline Orta MD [Primary Care Provider] - 1-2 days Time of Disposition: 15:17
--- NOTE | 2023-05-18 13:09 | XR ---
EXAMINATION TYPE: XR lumbar spine 2 or 3V DATE OF EXAM: 05/18/2023 CLINICAL HISTORY: pain TECHNIQUE: Three views of the lumbar spine are submitted. COMPARISON: None. FINDINGS: There are 5 lumbar type vertebral bodies identified. The lumbar spine shows satisfactory alignment w ithout evidence of acute fracture or dislocation. Vertebral body heights are within normal limits. Mo derate degenerative narrowing L3-4 through L5-S1. The overlying soft tissue appears unremarkable. IMPRESSION: No acute fracture or dislocation is seen in the lumbar spine. ICD 10 NO FRACTURE, INITIAL EVALUATION
--- NOTE | 2023-05-18 13:11 | XR ---
EXAMINATION TYPE: XR cervical spine limited DATE OF EXAM: 05/18/2023 CLINICAL HISTORY: pain TECHNIQUE: 3 views of the cervical spine are submitted. COMPARISON: None. FINDINGS: There is satisfactory in alignment without evidence of acute fracture or dislocation. The pre-vertebral soft tissue appears within normal limits. Moderate degenerative narrowing C4-5 through C6-7 with ventral spondylosis. The C1-C2 articulation is unremarkable on the open mouth view. IMPRESSION: No acute fracture or dislocation is seen in the cervical spine.
[2023-05-18 16:14] VITALS: BP 114/71; PULSE 68; RESP 16
== END 2023-05-18 15:59 | disposition home or self-care (01) ==
LOC: EC 10:15
DX: S30.0XXA Contusion of lower back and pelvis, initial encounter (principal); E11.9 Type 2 diabetes mellitus without complications; E78.5 Hyperlipidemia, unspecified; I10 Essential (primary) hypertension; Z79.84 Long term (current) use of oral hypoglycemic drugs; Z79.899 Other long term (current) drug therapy; W19.XXXA Unspecified fall, initial encounter
CPT/HCPCS: 99284 ×2; 96372 ×2; 72040; 72100; J1885

== ENCOUNTER 2023-06-09 10:41 | Emergency (ER) | payer MEDICARE, OTHER ==
[2023-06-09] MEDS ORDERED: IBUPROFEN 800 MG TAB PO STA (11:57)
[2023-06-09] MEDS ORDERED: LIDOCAINE 4% PATCH TOPICAL ONE (11:57)
[2023-06-09] MEDS ORDERED: HYDROcodone/APAP 7.5-325MG 1 EACH TAB PO ONE (11:57)
--- NOTE | 2023-06-09 12:44 | XR ---
EXAMINATION TYPE: XR sacrum coccyx, XR Hip Complete LT DATE OF EXAM: 06/09/2023 12:27 PM CLINICAL INDICATION:Female, 57 years old with history of Pain after fall; [facility] COMPARISON: None TECHNIQUE: The sacrum and coccyx was examined in frontal and lateral projections. Frontal and frog-leg lateral views of the left hip. FINDINGS: There is no evidence of fracture or dislocation. There is no soft tissue abnormality. No a bnormal calcifications are present. Multilevel degenerative changes of the lower spine. The hip appea rs intact without evidence of fracture. IMPRESSION: 1. No acute osseous pathology. 2. Intact left hip and left pelvis.
--- NOTE | 2023-06-09 12:45 | XR ---
EXAMINATION TYPE: XR ankle complete bilateral DATE OF EXAM: 06/09/2023 12:27 PM CLINICAL INDICATION:Female, 57 years old with history of PAIN AFTER FALL; [facility] COMPARISON: None TECHNIQUE: XR ankle complete bilateral; ankle is imaged in frontal, lateral and oblique projections. FINDINGS: There is no evidence of acute osseous pathology. The joint spaces are well-preserved without evidenc e of subluxation or dislocation. Kager's fat pad is intact. Mild soft tissue swelling around the ankl e. No radiopaque foreign bodies are identified. Calcaneal plantar spurring. IMPRESSION: 1. No evidence of acute fracture. 2. Subcutaneous swelling around the ankle likely secondary to underlying soft tissue injury.
--- NOTE | 2023-06-09 12:45 | XR ---
EXAMINATION TYPE: XR elbow complete LT DATE OF EXAM: 06/09/2023 12:27 PM CLINICAL INDICATION:Female, 57 years old with history of Pain after fall; [facility] COMPARISON: None TECHNIQUE: XR elbow complete LT; elbow was examined in AP, lateral, and oblique projections. FINDINGS: No evidence of any acute osseous pathology, joint dislocation, or soft tissue swelling is n oted. No evidence of joint effusion is present. IMPRESSION: No evidence of acute fracture.
--- NOTE | 2023-06-09 12:56 | ED ---
Fall HPI - General Chief Complaint: Fall Stated Complaint: Fall Time Seen by Provider: 06/09/23 11:51 Source: patient, RN notes reviewed Mode of arrival: ambulatory Limitations: no limitations - History of Present Illness Initial Comments: This is a 57-year-old female who presents to the emergency department for a fall. Patient states that she was carrying boxes out of storage, when she tripped on a cement curb and fell, landing on her left side. Denies hitting her head or sustaining any loss of consciousness. Not taking any blood thinners. Currently having pain to the left hip, tailbone, left elbow, and bilateral ankles. Complaint: fall Onset/Timin -: days(s) - Related Data Home Medications Medication Instructions Recorded Confirmed Albuterol Sulfate [Proair Hfa] 1 - 2 puff INHALATION RT-Q6H PRN 11/08/20 07/05/22 Furosemide [Lasix] 40 mg PO DAILY 11/08/20 07/05/22 Gabapentin [Neurontin] 100 mg PO TID 11/08/20 07/05/22 Ibuprofen [Motrin] 800 mg PO AC-TID PRN 11/08/20 07/05/22 Loratadine 10 mg PO DAILY 11/08/20 07/05/22 Montelukast [Singulair] 10 mg PO DAILY 11/08/20 07/05/22 Pioglitazone [Actos] 45 mg PO DAILY 11/08/20 07/05/22 Potassium Chloride ER [K-Dur 10] 10 meq PO DAILY 11/08/20 07/05/22 glipiZIDE [Glucotrol] 5 mg PO AC-BID 11/08/20 07/05/22 lisinopriL [Zestril] 5 mg PO DAILY 11/08/20 07/05/22 Previous Rx's Medication Instructions Recorded Ibuprofen 800 mg PO TID #20 tablet 07/29/21 Amoxicillin/Potassium Clav 1 each PO Q12HR #20 tab 09/05/21 [Augmentin 875-125 Tablet] Cyclobenzaprine [Flexeril] 10 mg PO TID PRN #15 tab 05/18/23 Ketorolac [Toradol] 10 mg PO Q6HR #15 tab 05/18/23 Ibuprofen [Motrin] 800 mg PO Q8H PRN #30 tab 06/09/23 methocarbamoL [Robaxin-750] 1,500 mg PO TID PRN #30 tab 06/09/23 Allergies Allergy/AdvReac Type Severity Reaction Status Date / Time No Known Allergies Allergy Verified 06/09/23 10:47 Review of Systems ROS Statement: Those systems with pertinent positive or pertinent negative responses have been documented in the HPI. ROS Other: All systems not noted in ROS Statement are negative. Past Medical History Past Medical History: Diabetes Mellitus, Hyperlipidemia, Hypertension History of Any Multi-Drug Resistant Organisms: None Reported Past Surgical History: Cholecystectomy, Hysterectomy, Orthopedic Surgery, Tonsillectomy Additional Past Surgical History / Comment(s): ganglion cyst Past Psychological History: No Psychological Hx Reported Smoking Status: Never smoker Past Alcohol Use History: None Reported Past Drug Use History: None Reported General Exam Limitations: no limitations General appearance: alert, in no apparent distress Head exam: Present: atraumatic, normocephalic, normal inspection Respiratory exam: Present: normal lung sounds bilaterally. Absent: respiratory distress, wheezes, rales, rhonchi, stridor Cardiovascular Exam: Present: regular rate, normal rhythm, normal heart sounds. Absent: systolic murmur, diastolic murmur, rubs, gallop, clicks Extremities exam: Present: other (Left hip tenderness. No overlying deformities, ecchymosis, or swelling. Superficial abrasion to the left elbow. No active bleeding.) Back exam: Present: tenderness (Left sacrum. No ecchymosis.) Neurological exam: Present: alert, oriented X3, CN II-XII intact Psychiatric exam: Present: normal affect, normal mood Skin exam: Present: warm, dry, intact, normal color. Absent: rash Course Vital Signs 06/09/23 06/09/23 06/09/23 10:45 12:44 13:49 Temperature 98.4 F 97.8 F Pulse Rate 83 82 70 Respiratory 20 18 18 Rate Blood Pressure 134/80 128/83 116/71 O2 Sat by Pulse 99 95 97 Oximetry Medical Decision Making - Medical Decision Making This is a 57-year-old female who presents to the emergency department for a fall injury. Was pt. sent in by a medical professional or institution? @ -No Did you speak to anyone other than the patient for history? @ -No Did you review nursing and triage notes? @ -Yes, and I agree, it is accurate with regards to the patient's symptoms. Were old charts reviewed? @ -No Differential Diagnosis? @ -Differential Musculoskeletal: Muscular strain, contusion, ligament sprain, fracture, arthritis, septic arthritis, bursitis, cellulitis, muscle spasm, nerve compression, DVT, arterial occlusion, herpes zoster, electrolyte abnormality, tumor.... This is not meant to be in all inclusive list EKG interpreted by me (3pts min.)? @ -Not obtained X-rays interpreted by me (1pt min.)? @ -X-ray of the left hip, sacrum/coccyx, left elbow, and bilateral ankles obtained. My interpretation of all imaging identifies no acute fractures. CT interpreted by me (1pt min.)? @ -Not obtained U/S interpreted by me (1pt. min.)? @ -Not obtained What testing was considered but not performed? (CT, X-rays, U/S, labs)? Why? @ -None What meds were considered but not given? Why? @ -None Did you discuss the management of the patient with other professionals? @ -No Did you reconcile home meds? @ -No Was smoking cessation discussed for >3mins.? @ -No Was critical care preformed (if so, how long)? @ -No Were there social determinants of health that impacted care today? How? (Ho melessness, low income, unemployed, alcoholism, drug addiction, transportation, low edu. Level, literacy, decrease access to med. care, [facility], rehab)? @ -No Was there de-escalation of care discussed even if they declined? (Discuss DNR or withdrawal of care, Hospice)? @ -No What co-morbidities impacted this encounter? (DM, HTN, Smoking, COPD, CAD, Cancer, CVA, Hep., AIDS, mental health diagnosis, sleep apnea, morbid obesity)? @ -None Was patient admitted / discharged? @ -Discharged. X-ray of the left hip, sacrum/coccyx, left elbow, and bilateral ankles obtained. Imaging reveals soft tissue swelling around the ankles without any evidence of fracture or other osseous abnormalities. Her symptoms were well controlled in the emergency department. Prescription for ibuprofen and Robaxin provided with dosing instructions reviewed. Patient discharged home in stable condition. Undiagnosed new problem with uncertain prognosis? @ -None Drug Therapy requiring intensive monitoring for toxicity (Heparin, Nitro, Insulin, Cardizem)? @ -None Were any procedures done? @ -None Diagnosis/symptom? @ -Fall, left hip pain, coccygeal pain, ankle sprain Acute, or Chronic, or Acute on Chronic? @ -Acute Uncomplicated (without systemic symptoms) or Complicated (systemic symptoms)? @ -Uncomplicated Side effects of treatment? @ -None Exacerbation, Progression, or Severe Exacerbation] @ -Not applicable Poses a threat to life or bodily function? @ -No Return precautions reviewed in depth, the patient is instructed to return to the emergency department with any new, worsening, or concerning symptoms. Patient verbalized understanding. This case was discussed in detail with the attending ED physician, Dr. South. Presentation, findings, and treatment plan discussed in detail as well. - Radiology Data Radiology results: report reviewed, image reviewed Disposition Clinical Impression: Fall, Left hip pain, Coccyx pain Disposition: HOME SELF-CARE Instructions (If sedation given, give patient instructions): Hip Pain (ED) Additional Instructions: Return to the emergency department with any new, worsening, or concerning symptoms. Alternate with ibuprofen and Tylenol as needed for pain relief. You can take the Robaxin as 1-2 tablets up to 3-4 times daily as needed. Be aware that this may make you drowsy. You can also purchase [id number] lidocaine patches if needed. Follow up with your primary care provider in 1-2 days. Prescriptions: Ibuprofen [Motrin] 800 mg PO Q8H PRN #30 tab PRN Reason: Pain methocarbamoL [Robaxin-750] 1,500 mg PO TID PRN #30 tab PRN Reason: Pain Is patient prescribed a controlled substance at d/c from ED?: No Referrals: Pauline Orta MD [Primary Care Provider] - 1-2 days
[2023-06-09] MEDS ORDERED: IBUPROFEN 600 MG STARTER PACK 4 TAB BTL PO STA (13:27)
[2023-06-09] MEDS ORDERED: ACET/COD 300 MG/30 MG STARTER PACK 6 TAB BTL PO STA (13:27)
[2023-06-09 13:49] VITALS: RESP 18
[2023-06-09 14:11] VITALS: BP 116/71; PULSE 70; TEMP 97.8
== END 2023-06-09 14:02 | disposition home or self-care (01) ==
LOC: EC 10:41
DX: S93.402A Sprain of unspecified ligament of left ankle, initial encounter (principal); S93.401A Sprain of unspecified ligament of right ankle, initial encounter; S50.312A Abrasion of left elbow, initial encounter; M53.3 Sacrococcygeal disorders, not elsewhere classified; M25.552 Pain in left hip; E11.9 Type 2 diabetes mellitus without complications; I10 Essential (primary) hypertension; Z79.84 Long term (current) use of oral hypoglycemic drugs; Z79.899 Other long term (current) drug therapy; Z90.49 Acquired absence of other specified parts of digestive tract; W01.0XXA Fall on same level from slipping, tripping and stumbling without subsequent striking against object, initial encounter
CPT/HCPCS: 72220; 73502; 99284

== ENCOUNTER 2023-06-12 12:36 | Emergency (ER) | payer MEDICARE, OTHER ==
[2023-06-12 13:17] VITALS: RESP 18; TEMP 98.4
[2023-06-12] MEDS ORDERED: SODIUM CHLORIDE 0.9% 1,000 ML IV STA (13:40)
[2023-06-12] MEDS ORDERED: KETOROLAC 15 MG/ML 1 ML VIAL IVP STA (13:41)
--- NOTE | 2023-06-12 13:41 | ED ---
Weakness HPI - General Chief complaint: Nausea/Vomiting/Diarrhea Stated complaint: N/V Time Seen by Provider: 06/12/23 13:19 Source: patient, RN notes reviewed, old records reviewed, Caregiver Mode of arrival: wheelchair Limitations: no limitations - History of Present Illness Initial comments: This is a 58-year-old female to the emergency department for evaluation multiple complaints abdominal pain nausea vomiting for a few days now. Patient is rece ntly here with fall complaining of severe back pain. Originally no acute disease was found. Patient does have severe recurrent back pain related to fall as well as otherwise not feeling well. She is without fever does admit to some dehydration as she has not feeling well and not eating and drinking appropriately. MD Complaint: generalized weakness, lack of energy -: days(s) Location: generalized Severity: moderate Consistency: constant Improves with: none Worsens with: none Context: recent illness, history of similar Associated Symptoms: denies other symptoms - Related Data Home Medications Medication Instructions Recorded Confirmed Albuterol Sulfate [Proair Hfa] 1 - 2 puff INHALATION RT-Q6H PRN 11/08/20 07/05/22 Furosemide [Lasix] 40 mg PO DAILY 11/08/20 07/05/22 Gabapentin [Neurontin] 100 mg PO TID 11/08/20 07/05/22 Ibuprofen [Motrin] 800 mg PO AC-TID PRN 11/08/20 07/05/22 Loratadine 10 mg PO DAILY 11/08/20 07/05/22 Montelukast [Singulair] 10 mg PO DAILY 11/08/20 07/05/22 Pioglitazone [Actos] 45 mg PO DAILY 11/08/20 07/05/22 Potassium Chloride ER [K-Dur 10] 10 meq PO DAILY 11/08/20 07/05/22 glipiZIDE [Glucotrol] 5 mg PO AC-BID 11/08/20 07/05/22 lisinopriL [Zestril] 5 mg PO DAILY 11/08/20 07/05/22 Previous Rx's Medication Instructions Recorded Ibuprofen 800 mg PO TID #20 tablet 07/29/21 Amoxicillin/Potassium Clav 1 each PO Q12HR #20 tab 09/05/21 [Augmentin 875-125 Tablet] Cyclobenzaprine [Flexeril] 10 mg PO TID PRN #15 tab 05/18/23 Ketorolac [Toradol] 10 mg PO Q6HR #15 tab 05/18/23 Ibuprofen [Motrin] 800 mg PO Q8H PRN #30 tab 06/09/23 methocarbamoL [Robaxin-750] 1,500 mg PO TID PRN #30 tab 06/09/23 Cephalexin [Keflex] 500 mg PO TID #14 cap 06/12/23 Allergies Allergy/AdvReac Type Severity Reaction Status Date / Time acetaminophen [From Tylenol] AdvReac Nausea & Verified 06/12/23 13:15 Vomiting Review of Systems ROS Statement: Those systems with pertinent positive or pertinent negative responses have been documented in the HPI. ROS Other: All systems not noted in ROS Statement are negative. Past Medical History Past Medical History: Diabetes Mellitus, Hyperlipidemia, Hypertension History of Any Multi-Drug Resistant Organisms: None Reported Past Surgical History: Cholecystectomy, Hysterectomy, Orthopedic Surgery, Tonsillectomy Additional Past Surgical History / Comment(s): ganglion cyst Past Psychological History: No Psychological Hx Reported Smoking Status: Never smoker Past Alcohol Use History: None Reported Past Drug Use History: None Reported General Exam Limitations: no limitations General appearance: alert, in no apparent distress Head exam: Present: atraumatic, normocephalic, normal inspection Eye exam: Present: normal appearance, PERRL, EOMI. Absent: scleral icterus, con junctival injection, periorbital swelling ENT exam: Present: normal exam, mucous membranes moist Neck exam: Present: normal inspection. Absent: tenderness, meningismus, lymphadenopathy Respiratory exam: Present: normal lung sounds bilaterally. Absent: respiratory distress, wheezes, rales, rhonchi, stridor Cardiovascular Exam: Present: regular rate, normal rhythm, normal heart sounds. Absent: systolic murmur, diastolic murmur, rubs, gallop, clicks GI/Abdominal exam: Present: soft, normal bowel sounds. Absent: distended, tenderness, guarding, rebound, rigid Extremities exam: Present: normal inspection, full ROM, normal capillary refill. Absent: tenderness, pedal edema, joint swelling, calf tenderness Back exam: Present: normal inspection Neurological exam: Present: alert, oriented X3, CN II-XII intact Psychiatric exam: Present: normal affect, normal mood Skin exam: Present: warm, dry, intact, normal color. Absent: rash Course Vital Signs 06/12/23 06/12/23 06/12/23 13:12 17:04 19:30 Temperature 98.4 F Pulse Rate 91 94 87 Respiratory 18 18 18 Rate Blood Pressure 143/77 153/78 157/91 O2 Sat by Pulse 98 99 97 Oximetry - Reevaluation(s) Reevaluation #1: Medical records reviewed Reevaluation #2: Patient symptoms are improved Reevaluation #3: Patient informed of results and questions answered Reevaluation #4: Was pt. sent in by a medical professional or institution (, NATALIO, CATERING TRUCK OPERATOR, urgent care, hospital, or residential...) When possible be specific @ -no Did you speak to anyone other than the patient for history (EMS, parent, family, police, friend...)? What history was obtained from this source @ -no Did you review nursing and triage notes (agree or disagree)? Why? @ -agree Are old charts reviewed (outside hosp., previous admission, EMS record, old EKG, old radiological studies, urgent care reports/EKG's, residential records)? Report findings @ -yes Differential Diagnosis (chest pain, altered mental status, abdominal pain women, abdominal pain men, vaginal bleeding, weakness, fever, dyspnea, syncope, headache, dizziness, GI bleed, back pain, seizure, CVA, palpatations, mental health, musculoskeletal)? @ -prior EKG interpreted by me (3pts min.). @ -yes X-rays interpreted by me (1pt min.). @ -yes negative for acute disease CT interpreted by me (1pt min.). @ -y positive for back fracturees U/S interpreted by me (1pt. min.). @ -no What testing was considered but not performed or refused? (CT, X-rays, U/S, labs)? Why? @ -none What meds were considered but not given or refused? Why? @ -none Did you discuss the management of the patient with other professionals (professionals i.e. NATALIO Hood, CATERING TRUCK OPERATOR, lab, RT, psych nurse, high school social science teacher, supervisor byproducts, teacher, risk officer, mattress spring encaser)? Give summary @ -no Was smoking cessation discussed for >3mins.? @ -no Was critical care preformed (if so, how long)? @ -no Were there social determinants of health that impacted care today? How? (Homelessness, low income, unemployed, alcoholism, drug addiction, transportation, low edu. Level, literacy, decrease access to med. care, [facility], rehab)? @ -none Was there de-escalation of care discussed even if they declined (Discuss DNR or withdrawal of care, Hospice)? DNR status @ -no What co-morbidities impacted this encounter? (DM, HTN, Smoking, COPD, CAD, Cancer, CVA, ARF, Chemo, Hep., AIDS, mental health diagnosis, sleep apnea, morbid obesity)? @ -none Was patient admitted / discharged? Hospital course, mention meds given and route, prescriptions, significant lab abnormalities, going to OR and other pertinent info. @ - 58 female to the emergency department with a recent fall. Patient is having severe pain from this fall with acute back fracture noted. Patient has had persistent dull. Nausea and vomiting does have significant urinary tract infection will treat with antibiotics and patient will be discharged home Discharge Undiagnosed new problem with uncertain prognosis? @ -no Drug Therapy requiring intensive monitoring for toxicity (Heparin, Nitro, Insulin, Cardizem)? @ -no Were any procedures done? @ -no Diagnosis/symptom? @ -UTI, back pain with fracture of fall Acute, or Chronic, or Acute on Chronic? @ -Acute Uncomplicated (without systemic symptoms) or Complicated (systemic symptoms)? @ -Complicated Side effects of treatment? @ -no Exacerbation, Progression, or Severe Exacerbation? @ -exacerbation Poses a threat to life or bodily function? How? (Chest pain, [place], [place], pneumonia, PE, COPD, DKA, ARF, appy, cholecystitis, CVA, Diverticulitis, Homicidal, Suicidal, threat to staff... and all critical care pts) @ -yes multiple complaints Reevaluation #5: Differential Dyspnea: Coronary syndrome, arrhythmia, tamponade, asthma, COPD, pulmonary embolism, pneumonia, pneumothorax, pulmonary effusion, anaphylaxis, diabetic ketoacidosis, flailed chest, pulmonary contusion, diaphragmatic rupture, anemia, neuromuscular, this is not meant to be an all-inclusive list. EKG Findings - EKG Comments: EKG Findings:: EKG is sinus 88 [place] 175 QRS 96 QTc 460 - EKG Results: EKG: interpreted by TESHA Medical Decision Making - Medical Decision Making 58 female to the emergency department with a recent fall. Patient is having severe pain from this fall with acute back fracture noted. Patient has had persistent dull. Nausea and vomiting does have significant urinary tract infection will treat with antibiotics and patient will be discharged home - Lab Data Result diagrams: 06/12/23 14:13 06/12/23 14:13 Lab Results 06/12/23 06/12/23 06/12/23 Range/Units 14:13 14:13 14:13 WBC 6.1 (3.8-10.6) k/uL RBC 4.32 (3.80-5.40) m/uL Hgb 12.8 (11.4-16.0) gm/dL Hct 38.8 (34.0-46.0) % MCV 89.7 (80.0-100.0) fL MCH 29.5 (25.0-35.0) pg MCHC 32.9 (31.0-37.0) g/dL RDW 14.2 (11.5-15.5) % Plt Count 178 (150-450) k/uL MPV 8.0 Neutrophils % 78 % Lymphocytes % 14 % Monocytes % 5 % Eosinophils % 1 % Basophils % 1 % Neutrophils # 4.8 (1.3-7.7) k/uL Lymphocytes # 0.8 L (1.0-4.8) k/uL Monocytes # 0.3 (0-1.0) k/uL Eosinophils # 0.1 (0-0.7) k/uL Basophils # 0.1 (0-0.2) k/uL PT 10.8 (10.0-12.5) sec INR 1.0 (<1.2) APTT 24.5 (22.0-30.0) sec Sodium (137-145) mmol/L Potassium (3.5-5.1) mmol/L Chloride (98-107) mmol/L Carbon Dioxide (22-30) mmol/L Anion Gap mmol/L BUN (7-17) mg/dL Creatinine (0.52-1.04) mg/dL Est GFR (CKD-EPI)AfAm (>60 ml/min/1.73 sqM) Est GFR (CKD-EPI)NonAf (>60 ml/min/1.73 sqM) Glucose (74-99) mg/dL Calcium (8.4-10.2) mg/dL Phosphorus (2.5-4.5) mg/dL Magnesium (1.6-2.3) mg/dL Total Bilirubin (0.2-1.3) mg/dL AST (14-36) U/L ALT (4-34) U/L Alkaline Phosphatase (38-126) U/L Troponin I (0.000-0.034) ng/mL NT-Pro-B Natriuret Pep pg/mL Total Protein (6.3-8.2) g/dL Albumin (3.5-5.0) g/dL Lipase (23-300) U/L Urine Color Yellow Urine Appearance Clear (Clear) Urine pH 8.0 (5.0-8.0) Ur Specific [place] 1.020 (1.001-1.035) Urine Protein Trace H (Negative) Urine Glucose (UA) Negative (Negative) Urine Ketones Trace H (Negative) Urine Blood Negative (Negative) Urine Nitrite Positive H (Negative) Urine Bilirubin Negative (Negative) Urine Urobilinogen 6.0 (<2.0) mg/dL Ur Leukocyte Esterase Trace H (Negative) Urine RBC 1 (0-5) /hpf Urine WBC 6 H (0-5) /hpf Ur Squamous Epith Cells 2 (0-4) /hpf Urine Bacteria Many H (None) /hpf Urine Mucus Occasional H (None) /hpf 06/12/23 06/12/23 Range/Units 14:13 14:13 WBC (3.8-10.6) k/uL RBC (3.80-5.40) m/uL Hgb (11.4-16.0) gm/dL Hct (34.0-46.0) % MCV (80.0-100.0) fL MCH (25.0-35.0) pg MCHC (31.0-37.0) g/dL RDW (11.5-15.5) % Plt Count (150-450) k/uL MPV Neutrophils % % Lymphocytes % % Monocytes % % Eosinophils % % Basophils % % Neutrophils # (1.3-7.7) k/uL Lymphocytes # (1.0-4.8) k/uL Monocytes # (0-1.0) k/uL Eosinophils # (0-0.7) k/uL Basophils # (0-0.2) k/uL PT (10.0-12.5) sec INR (<1.2) APTT (22.0-30.0) sec Sodium 141 (137-145) mmol/L Potassium 4.0 (3.5-5.1) mmol/L Chloride 107 (98-107) mmol/L Carbon Dioxide 23 (22-30) mmol/L Anion Gap 11 mmol/L BUN 11 (7-17) mg/dL Creatinine 0.61 (0.52-1.04) mg/dL Est GFR (CKD-EPI)AfAm >90 (>60 ml/min/1.73 sqM) Est GFR (CKD-EPI)NonAf >90 (>60 ml/min/1.73 sqM) Glucose 158 H (74-99) mg/dL Calcium 9.4 (8.4-10.2) mg/dL Phosphorus 3.3 (2.5-4.5) mg/dL Magnesium 2.1 (1.6-2.3) mg/dL Total Bilirubin 1.6 H (0.2-1.3) mg/dL AST 26 (14-36) U/L ALT 20 (4-34) U/L Alkaline Phosphatase 102 (38-126) U/L Troponin I <0.012 (0.000-0.034) ng/mL NT-Pro-B Natriuret Pep 448 pg/mL Total Protein 7.0 (6.3-8.2) g/dL Albumin 4.0 (3.5-5.0) g/dL Lipase 101 (23-300) U/L Urine Color Urine Appearance (Clear) Urine pH (5.0-8.0) Ur Specific [place] (1.001-1.035) Urine Protein (Negative) Urine Glucose (UA) (Negative) Urine Ketones (Negative) Urine Blood (Negative) Urine Nitrite (Negative) Urine Bilirubin (Negative) Urine Urobilinogen (<2.0) mg/dL Ur Leukocyte Esterase (Negative) Urine RBC (0-5) /hpf Urine WBC (0-5) /hpf Ur Squamous Epith Cells (0-4) /hpf Urine Bacteria (None) /hpf Urine Mucus (None) /hpf - EKG Data -: EKG Interpreted by Me - Radiology Data Radiology results: report reviewed (Chest x-ray and CT of the abdomen and pelvis is positive for L1 fracture), image reviewed Disposition Clinical Impression: Fall, Left hip pain, Back fracture, UTI (urinary tract infection), Coccyx pain Disposition: HOME SELF-CARE Condition: Good Instructions (If sedation given, give patient instructions): Urinary Tract Infection in Women (ED) Prescriptions: Cephalexin [Keflex] 500 mg PO TID #14 cap Is patient prescribed a controlled substance at d/c from ED?: No Referrals: Pauline Orta MD [Primary Care Provider] - 1-2 days Time of Disposition: 19:15
--- NOTE | 2023-06-12 14:27 | XR ---
EXAMINATION TYPE: XR chest 2V DATE OF EXAM: 06/12/2023 COMPARISON: NONE HISTORY: Shortness of breath TECHNIQUE: Frontal and lateral views of the chest are obtained. FINDINGS: Scattered senescent parenchymal changes noted. Hyperinflation compatible with COPD. No evidence for infiltrate. No evidence for atelectasis. Heart size is stable. Mediastinal structures are stable and grossly unremarkable. No evidence for hilar prominence. Degenerative changes dorsal spine. IMPRESSION: 1. No evidence for acute pulmonary disease.
[2023-06-12 14:38] LABS: Basophils # (A) 0.1 k/uL (0-0.2); Basophils % (A) 1 %; Eosinophils # (A) 0.1 k/uL (0-0.7); Eosinophils % (A) 1 %; HCT 38.8 % (34.0-46.0); HGB 12.8 gm/dL (11.4-16.0); Lymphocytes # (A) 0.8 k/uL (1.0-4.8); Lymphocytes % (A) 14 %; MCH 29.5 pg (25.0-35.0); MCHC 32.9 g/dL (31.0-37.0); MCV 89.7 fL (80.0-100.0); Monocytes # (A) 0.3 k/uL (0-1.0); Monocytes % (A) 5 %; Neutrophils # (A) 4.8 k/uL (1.3-7.7); Neutrophils % (A) 78 %; Platelet Count 178 k/uL (150-450); RBC 4.32 m/uL (3.80-5.40); RDW 14.2 % (11.5-15.5); WBC 6.1 k/uL (3.8-10.6)
[2023-06-12 14:43] LABS: Appearance,Urine Clear (Clear); Bacteria,Urine Many /hpf; Bilirubin,Urine Negative (Negative); Blood,Urine Negative (Negative); Color,Urine Yellow; Glucose,Urine (UA) Negative (Negative); Ketones,Urine Trace (Negative); Leukocyte Esterase,Urine Trace (Negative); Mucus,Urine Occasional /hpf; Nitrite,Urine Positive (Negative); Protein,Urine Trace (Negative); RBC,Urine 1 /hpf (0-5); Squamous Epithelial Cell,Urine 2 /hpf (0-4); WBC,Urine 6 /hpf (0-5)
[2023-06-12 14:49] LABS: Partial Thromboplastin Time 24.5 sec (22.0-30.0); Prothrombin Time 10.8 sec (10.0-12.5)
[2023-06-12 16:07] LABS: ALT 20 U/L (4-34); AST 26 U/L (14-36); African American GFR (CKD) >90 (>60 ml/min/1.73 sqM); Alkaline Phosphatase 102 U/L (38-126); Anion Gap 11 mmol/L; Blood Urea Nitrogen 11 mg/dL (7-17); Calcium 9.4 mg/dL (8.4-10.2); Carbon Dioxide 23 mmol/L (22-30); Chloride 107 mmol/L (98-107); Glucose 158 mg/dL (74-99); Lipase 101 U/L (23-300); Magnesium 2.1 mg/dL (1.6-2.3); Non-African American GFR(CKD) >90 (>60 ml/min/1.73 sqM); Phosphorus 3.3 mg/dL (2.5-4.5); Sodium 141 mmol/L (137-145); Total Bilirubin 1.6 mg/dL (0.2-1.3)
[2023-06-12 16:15] LABS: NT-Pro-B-Type Natriuretic Pept 448 pg/mL
--- NOTE | 2023-06-12 18:21 | CT ---
EXAMINATION TYPE: CT abdomen pelvis w con CT DLP: 3262.4 mGycm, Automated exposure control for dose reduction was used. DATE OF EXAM: 06/12/2023 4:39 PM COMPARISON: CLINICAL INDICATION:Female, 57 years old with history of pain; Abdomen pain N/V, recent fall injury t o back TECHNIQUE: Axial CT of the abdomen and pelvis. Sagittal and coronal reformats were created on a [employer] workstation. Contrast used:100 mL of Isovue 300 with IV Contrast, (none if empty) Oral contrast used: without Oral Contrast (none if empty) FINDINGS: LOWER CHEST: Posterior dependent subsegmental atelectasis is noted. Small sliding hiatal hernia. ABDOMEN LIVER: Unremarkable GALLBLADDER AND BILE DUCTS: The gallbladder is surgically absent. PANCREAS: Unremarkable. SPLEEN: Unremarkable. ADRENAL GLANDS: Unremarkable. KIDNEYS AND URETERS: Kidneys enhance symmetrically. No evidence of hydronephrosis or visible renal ca lculus. The ureters are unremarkable. PELVIS BLADDER: Incompletely distended but grossly unremarkable. REPRODUCTIVE: The uterus appears absent, correlate for hysterectomy. Ovaries appear present and nava sly unremarkable. ABDOMEN & PELVIS STOMACH AND BOWEL: Stomach and small bowel are nondistended, no evidence of obstruction. The append ix appears within normal limits. There is stool and gas seen throughout the colon. No focal acute pr ocess is seen. PERITONEUM/RETROPERITONEUM: No evidence of pneumoperitoneum or free fluid. VASCULATURE: Mild atherosclerotic calcifications are present throughout the abdominal aorta and its b ranches. No evidence of aortic aneurysm. Portal veins are enhancing. Splenic vein is patent. MUSCULOSKELETAL: Moderate degenerative disc disease and facet arthrosis throughout the lumbar spine. Along the superior endplate L1, there is mild loss of height with a vague band of sclerosis deep to t he endplate and apparent tiny lucencies, suggestive of an acute/subacute compression fracture. There is slight bulging/retropulsion into the spinal canal eccentric to the right with underlying small dis c osteophyte complex, without significant narrowing of the canal or neural foramina suggested. Degenerative changes result in mild canal and neural foraminal narrowing L2-L3 level, mild/moderate c anal and neural foraminal narrowing L3-L4 level, mild canal and foraminal narrowing L4-L5 level. Vacu um disc with disc osteophyte complex and facet arthrosis result in mild/moderate canal narrowing and moderate to severe bilateral neural foraminal narrowing L5-S1 level. No other acute bony abnormality is seen. LYMPH NODES: No gross evidence for lymphadenopathy. SOFT TISSUE/ABDOMINAL WALL: Tiny fat-containing umbilical hernia. IMPRESSION: 1. Acute/subacute, mild compression fracture deformity along the superior endplate of L1. 2. No acute abnormality otherwise within the abdomen or pelvis.
[2023-06-12] MEDS ORDERED: cefTRIAXone IN SWFI 1,000 MG/10 ML SYRINGE IVP STA (18:25)
[2023-06-12] MEDS ORDERED: ACET/COD 300 MG/30 MG STARTER PACK 6 TAB BTL PO STA (19:10)
[2023-06-12] MEDS ORDERED: CEPHALEXIN 500MG STARTER PACK 4 CAP BTL PO STA (19:10)
[2023-06-12] MEDS ORDERED: ONDANSETRON 4 MG ODT STARTER PACK 2 TAB BTL PO STA (19:10)
[2023-06-12] MEDS ORDERED: traMADol 50 MG STARTER PACK 3 TAB BTL PO STA (19:22)
[2023-06-12] MEDS ORDERED: traMADol 50 MG TAB PO STA (19:22)
[2023-06-12 19:34] VITALS: BP 157/91; PULSE 87
== END 2023-06-12 19:31 | disposition home or self-care (01) ==
LOC: EC 12:36 → EEVIPCON 12:36 → EC 19:31
DX: S32.2XXA Fracture of coccyx, initial encounter for closed fracture (principal); M25.552 Pain in left hip; N39.0 Urinary tract infection, site not specified; I10 Essential (primary) hypertension; E11.9 Type 2 diabetes mellitus without complications; E78.5 Hyperlipidemia, unspecified; Z79.84 Long term (current) use of oral hypoglycemic drugs; Z79.899 Other long term (current) drug therapy; Z88.6 Allergy status to analgesic agent; Z90.49 Acquired absence of other specified parts of digestive tract; W18.30XA Fall on same level, unspecified, initial encounter
CPT/HCPCS: 36415; 93005; 83880; 80053; 83690; 83735; 84100; 84484; 85025; 85610; 85730; 81001; 71046; 74177; 99285; 96374; 96375; 96361 ×2; J0696; J1885; S0119; Q9967

== ENCOUNTER → 2023-08-21 | Outpatient (CLI) | payer MEDICARE, OTHER ==
--- NOTE | 2023-08-21 22:16 | MM ---
Reason for Exam: Screening (asymptomatic). Last mammogram was performed 2 year(s) and 1 month(s) ago. Patient History: Menarche at age 6. First Full-Term at age 21. Hysterectomy at age 40. Postmenopausal. Patient has history of breast feeding. Maternal aunt (great) had breast cancer. Maternal grandmother had ovarian cancer at or over age 50. Mother had ovarian cancer at or over age 50. Risk Values: Merry 5 year model risk: 1.0%. NCI Lifetime model risk: 6.5%. Prior Study Comparison: 04/29/2020 Bilateral Screening Mammogram, [facility]. 07/18/2021 Bilateral Screening Mammogram, [facility]. Tissue Density: There are scattered fibroglandular densities. Findings: Analyzed By CAD. The pattern is symmetrical. No significant interval change is evident. No suspicious groups of microcalcifications, spiculated or lobular masses, architectural distortion or other secondary signs of malignancy are mammographically apparent. Overall Assessment: Benign, BI-RAD 2 Management: Screening Mammogram of both breasts in 1 year. A negative mammogram report should not preclude additional follow up of suspicious palpable abnormalities. Patient should continue monthly self breast exam. A clinical breast exam by your physician is recommended on an annual basis and results should be correlated with mammographic findings. Electronically signed and approved by: Hilton Daugherty D.O. Radiologis
== END | disposition home or self-care (01) ==
LOC: RADMAMWWP 13:10
PROVIDERS: ATTEND Internal Medicine
DX: Z12.31 Encounter for screening mammogram for malignant neoplasm of breast (principal); Z78.0 Asymptomatic menopausal state; Z80.3 Family history of malignant neoplasm of breast
CPT/HCPCS: 77063; 77067

== ENCOUNTER → 2023-10-07 | Outpatient (CLI) | payer MEDICARE, OTHER ==
[2023-10-07 20:04] LABS: HCT 47.1 % (37.2-46.3); HGB 14.3 g/dL (12.0-15.0); MCH 28.9 pg (27.0-32.0); MCHC 30.4 g/dL (32.0-37.0); MCV 95.2 FL (80.0-97.0); Mean Platelet Volume 10.6 FL (9.5-12.2); NRBC Per 100 WBC 0 X 10*3/uL (0.00-0.01); Platelet Count 213 X 10*3/uL (140-440); RBC 4.95 X 10*6/uL (4.10-5.20); RDW 14.4 % (11.5-14.5); WBC 8.18 X 10*3/uL (4.50-10.00)
[2023-10-07 21:42] LABS: Blood Urea Nitrogen 27.3 mg/dL (9.0-27.0); Carbon Dioxide 23.2 mmol/L (21.6-31.8); Chloride 107 mmol/L (96-109); Potassium 4.9 mmol/L (3.5-5.5); Sodium 144 mmol/L (135-145)
== END | disposition home or self-care (01) ==
LOC: LABPAT 13:22
PROVIDERS: ATTEND Internal Medicine Interventional Cardiology
DX: R07.9 Chest pain, unspecified (principal); Z01.812 Encounter for preprocedural laboratory examination
CPT/HCPCS: 36415; 80051; 82565; 84520; 85027